=== PATIENT | female | born 1985 | race Asian ===

== ENCOUNTER → 2018-04-12 | Outpatient (REF) ==
[2018-04-12 15:48] LABS: RUBELLA IgG QUALITATIVE IMMUNE (IMMUNE)
[2018-04-18 00:06] LABS: RUBEOLA IgG ANTIBODY >300.0 AU/mL (Immune >29.9)
== END ==
LOC: M LAB 14:08
PROVIDERS: ATTEND Nurse Practitioner Adult Health
DX: Z00.00 Encounter for general adult medical examination without abnormal findings (principal)